=== PATIENT | female | born 1985 | race Caucasian/White ===

== ENCOUNTER → 2016-09-27 | Outpatient (REF) ==
[~2016-09-27] MED LIST: ADDERALL5 MG PO; CELEXA40 MG PO; PERCOCET 325 MG1 TA2 PO; SINGULAIR 110 MG/TAB PO; ZOFRAN ODT4 MG PO; ZOFRAN8 MG PO
== END ==
LOC: WSOH 09:21
DX: Z01.89 Encounter for other specified special examinations (principal)